=== PATIENT | female | born 1980 | race Caucasian/White ===

== ENCOUNTER → 2016-11-16 | Outpatient (CLI) | payer BC ==
[~2016-11-16] MED LIST: CITA10TA8 PO; HUMATROPE INJ; LEVO150T PO; LEVO1TAB35 PO; MULTTAB58 PO; SOMA6INJ INJ; [UNRECOGNIZED DRUG - CODE] PO
[2016-11-16 18:34] LABS: LYME DISEASE AB IGG NEG (NEG); LYME DISEASE AB IGM EQUIVOCAL (NEG)
[2016-11-22 05:43] LABS: 18KDIGG BAND NONREACTIVE (NONREACTIVE); 23KDIGG BAND NONREACTIVE (NONREACTIVE); 23KDIGM BAND REACTIVE (NONREACTIVE); 28KDIGG BAND NONREACTIVE (NONREACTIVE); 30KDIGG BAND NONREACTIVE (NONREACTIVE); 39KDIGG BAND NONREACTIVE (NONREACTIVE); 39KDIGM BAND NONREACTIVE (NONREACTIVE); 41KDIGG BAND NONREACTIVE (NONREACTIVE); 41KDIGM BAND NONREACTIVE (NONREACTIVE); 45KDIGG BAND NONREACTIVE (NONREACTIVE); 58KDIGG BAND REACTIVE (NONREACTIVE); 66KDIGG BAND NONREACTIVE (NONREACTIVE); 93KDIGG BAND NONREACTIVE (NONREACTIVE)
== END | disposition home or self-care (01) ==
LOC: C.LAB1850 16:07
PROVIDERS: ATTEND Physician Assistant
DX: T14.8 Other injury of unspecified body region (principal); W57.XXXA Bitten or stung by nonvenomous insect and other nonvenomous arthropods, initial encounter

== ENCOUNTER → 2017-01-02 | Outpatient (CLI) | payer BC ==
--- NOTE | 2017-01-02 16:01 | DIAGNOSTIC IMAGING REPORT ---
ABDOMINAL WALL ULTRASOUND CLINICAL HISTORY: R10.9 Abdominal pain COMPARISON STUDY: CT scan dated 05/18/2011 FINDINGS: Ultrasound of the right abdominal wall was performed with attention to the area of pain. There is a 4 mm shadowing focus within the soft tissues superficial to the rectus musculature. There is an area of heterogeneous echotexture within the fat measuring 14 x 4 mm. No abdominal wall hernia is visualized. IMPRESSION: 1. No ultrasonographic evidence of abdominal wall hernia 2. 14 x 4 mm area of heterogeneous echotexture within the subcutaneous fat superficial to the right rectus musculature. This contains a 4 mm shadowing focus, likely representing calcification. The lesion is nonspecific but could represent fat necrosis. Clinical follow-up is recommended. If the palpable abnormality increases in size, fine-needle aspiration biopsy could be obtained for tissue diagnosis Electronically signed by: Felix Clark M.D. 01/02/2017 4:00 PM Dictated Date/Time: 01/02/2017 3:56 PM
== END | disposition home or self-care (01) ==
LOC: C.ULTR 15:23
PROVIDERS: ATTEND Physician Assistant Medical
DX: R10.9 Unspecified abdominal pain (principal); R93.5 Abnormal findings on diagnostic imaging of other abdominal regions, including retroperitoneum

== ENCOUNTER 2017-04-01 06:43 | Emergency (ER) | payer BC ==
[~2017-04-01] VITALS: Ht 165.1 cm; Wt 70.3 kg
[~2017-04-01 06:43] MED LIST changes: -LEVO1TAB35 PO; -SOMA6INJ INJ
[2017-04-01 06:48] VITALS: TEMP 36.6; Ht 165.1 cm; Wt 70.3 kg
[2017-04-01 06:53] VITALS: O2SAT 98
[2017-04-01] MEDS ORDERED: ONDANSETRON INJ 2 MG/ML 2 ML VIAL IV STA (06:54)
[2017-04-01] MEDS ORDERED: MoRPHine SULFATE 4 MG/ML 1 ML CARP\\VIAL IV STA (06:54)
[2017-04-01] MEDS ORDERED: KETOROLAC TROMETHAMINE 30 MG/ML VIAL IV STA (06:54)
[2017-04-01] MEDS ORDERED: SODIUM CHLORIDE 0.9% 1000ML 1,000 ML IV STA (06:59)
[2017-04-01] MEDS ORDERED: SOMA6INJ INJ (07:06)
--- NOTE | 2017-04-01 07:06 | DIAGNOSTIC IMAGING REPORT ---
CHEST ONE VIEW PORTABLE HISTORY: 36 years-old Female Chest Pain COMPARISON: None available TECHNIQUE: Portable upright AP view of the chest FINDINGS: Cardiomediastinal and hilar silhouettes are within normal limits. No pneumothorax, pleural effusion or focal airspace consolidation. Bones are grossly intact. IMPRESSION: No acute cardiopulmonary process. The above report was generated using voice recognition software. It may contain grammatical, syntax or spelling errors. Electronically signed by: Juan Stephenson M.D. 04/01/2017 7:05 AM Dictated Date/Time: 04/01/2017 7:04 AM
[2017-04-01 07:10] LABS: BASO % 0.1 %; BASO ABS # 0.02 K/uL (0-0.2); COMPLETE YES; EOS % 0.1 %; HEMATOCRIT 40.3 % (37-47); IG% 0.6 %; LYMPH % 2.4 %; LYMPH ABS # 0.49 K/uL (1.2-3.4); MEAN CELL VOLUME 95.5 fL (80-100); MEAN CORPUSCULAR HEMOGLOBIN 31.3 pg (25-34); MEAN CORPUSCULAR HGB CONC 32.8 g/dl (32-36); MEAN PLATELET VOLUME 9.9 fL (7.4-10.4); MONO % 1.6 %; NEUT % 95.2 %; PLATELET COUNT 355 K/uL (130-400); RED BLOOD COUNT 4.22 M/uL (4.2-5.4); WHITE BLOOD COUNT 20.82 K/uL (4.8-10.8)
[2017-04-01 07:28] LABS: ALT/SGPT 21 U/L (12-78); BLOOD UREA NITROGEN 14 mg/dl (7-18); BUN/CREATININE RATIO 15.8 (10-20); CALCIUM 8.6 mg/dl (8.5-10.1); CARBON DIOXIDE 27 mmol/L (21-32); CHLORIDE 104 mmol/L (98-107); CREATININE 0.88 mg/dl (0.60-1.20); GLUCOSE 86 mg/dl (70-99); POTASSIUM 3.8 mmol/L (3.5-5.1); SODIUM 139 mmol/L (136-145)
[2017-04-01 07:33] LABS: ALKALINE PHOSPHATASE 63 U/L (45-117); AST/SGOT 21 U/L (15-37)
--- NOTE | 2017-04-01 07:33 | EMERGENCY ROOM VISIT NOTE ---
History Report prepared by Jahaira: Yosi Sol Under the Supervision of: Dr. Neto Sands D.O. First contact with patient: 06:48 Chief Complaint: SHORTNESS OF BREATH Stated Complaint: SOB, CHEST PAIN, DIARRHEA, VOM History of Present Illness The patient is a 36 year old female who presents to the Emergency Room with complaints of persistent chest pain and shortness of breath that began at 0100 this morning, 5.5 hours prior to arrival. The patient states that she awoke with her symptoms this morning. The pain is in the central/left chest, and the patient describes the sensation as a "midget sitting on her chest." She rates the pain as a 6 out of 10 in severity. Her chest pain is worsened with deep inspiration and twisting/turning/bending. The patient also complains that she has experienced four separate vomiting episodes this morning, with the most recent occurring at 0500. No radiation of the pain to her arms or jaw. The vomiting was secondary to nausea and not pain. She has also had multiple bouts of diarrhea. She denies any recent trauma, previous heart disease, diabetes, hypertension, hyperlipidemia, or history of smoking. The patient did travel to [place] recently for a trip to the beach. She is also on hormonal control. Denies coughing up blood, swelling of legs, blood clots, and history of cancer. The patient denies headache, change in vision, fevers, nausea, pain with urination, and melena. 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 A total of 10 systems reviewed and were otherwise negative. Past Medical & Surgical Surgical Problems: (1) H/O section (2) Hx of cholecystectomy Family History Cancer FHx: lung disease Social History Smoking Status: Never Smoker Marital Status: Housing Status: lives with family Occupation Status: employed Current/Historical Medications Scheduled Citalopram Hydrobromide (Celexa), 10 MG PO QAM Estradiol & Norethindrone Acet (Activella), 1 TAB PO QAM Levofloxacin (Levaquin), 750 MG PO QD@08 Levothyroxine Sodium (Synthroid), 150 MCG PO QAM Multiple Vitamin (Multivitamin), 1 TAB PO QAM Somatropin (Humatrope), 0.3 MG INJ QAM Allergies Coded Allergies: Cat Dander (Verified Allergy, Mild, sneezing, watery eyes, 04/01/17) Physical Exam Vital Signs Date Time Temp Pulse Resp B/P (MAP) Pulse Ox O2 Delivery O2 Flow Rate FiO2 04/01/17 09:50 87 24 103/58 93 04/01/17 07:55 89 24 114/66 93 Room Air 04/01/17 06:55 108 04/01/17 06:53 98 Room Air 04/01/17 06:49 93 Room Air 04/01/17 06:48 36.6 100 24 120/65 93 Room Air Physical Exam GENERAL: alert, sitting up in bed, uncomfortable, minimal distress, non-toxic EYE EXAM: normal conjunctiva OROPHARYNX: no exudate, no erythema, lips, buccal mucosa, and tongue normal and mucous membranes are moist NECK: supple, no nuchal rigidity, no adenopathy, non-tender. No JVD CHEST: Reproducible anterior chest wall pain just left of the sternum around ribs 3 through 5. Same pain she is experiencing when palpated/twisting/turning and bending LUNGS: Clear to auscultation. Normal chest wall mechanics HEART: Tachycardic rate. no murmurs, S1 normal and S2 normal ABDOMEN: abdomen soft, non-tender, normo-active bowel sounds, no masses, no rebound or guarding. BACK: Back is symmetrical on inspection and there is no deformity, no midline tenderness, no CVA tenderness. SKIN: no rashes and no bruising UPPER EXTREMITIES: upper extremities are grossly normal. Radial pulses equal bilateral LOWER EXTREMITIES: No pitting edema. Calves equal bilateral. NEURO EXAM: Normal sensorium, cranial nerves II-XII grossly intact, normal speech, no gross weakness of arms, no gross weakness of legs. Medical Decision & Procedures ER Provider Diagnostic Interpretation: Radiology results as stated below per my review and the radiologist's interpretation: CHEST ONE VIEW PORTABLE HISTORY: 36 years-old Female Chest Pain COMPARISON: None available TECHNIQUE: Portable upright AP view of the chest FINDINGS: Cardiomediastinal and hilar silhouettes are within normal limits. No pneumothorax, pleural effusion or focal airspace consolidation. Bones are grossly intact. IMPRESSION: No acute cardiopulmonary process. The above report was generated using voice recognition software. It may contain grammatical, syntax or spelling errors. Electronically signed by: Jaun Stephenson M.D. 04/01/2017 7:05 AM Dictated Date/Time: 04/01/2017 7:[address] ANGIOGRAPHY OF THE CHEST, PULMONARY EMBOLUS PROTOCOL CLINICAL HISTORY: Left-sided chest pain, shortness of breath and elevated d-dimer. COMPARISON STUDY: Chest radiograph April 01, 2017. TECHNIQUE: Following IV administration of 91 mL of Optiray-320, helical axial images of the chest were obtained utilizing the pulmonary embolus protocol. Maximal intensity projections and sagittal and coronal reformats were viewed on an independent 3D workstation. IV contrast was administered without complication. A dose lowering technique was utilized adhering to the principles of ALARA. CT DOSE: 229.51 mGy.cm FINDINGS: No pulmonary emboli are identified although the segmental and subsegmental pulmonary arteries are suboptimally assessed due to respiratory motion. There is no evidence of thoracic aortic dissection. The size of the heart is normal. There is no pericardial effusion. No enlarged axillary, mediastinal or hilar lymph nodes are present. Central airways are patent. There are few scattered mild subpleural opacities within the lingula. No pneumothorax or pleural effusion is present. There is no pneumomediastinum. Bony thorax is unremarkable. There are bilateral silicone breast implants. Upper abdomen is unremarkable. IMPRESSION: 1. No pulmonary emboli identified although the segmental and subsegmental pulmonary arteries are suboptimally assessed due to respiratory motion. 2. Minimal lingular subpleural opacity which favors atelectasis although a mild infectious process could appear similar. Electronically signed by: Douglas Fitch M.D. 04/01/2017 8:25 AM Dictated Date/Time: 04/01/2017 8:14 AM Laboratory Results 04/01/17 06:55 Red Blood Count 4.22, Mean Corpuscular Volume 95.5, Mean Corpuscular Hemoglobin 31.3, Mean Corpuscular Hemoglobin Concent 32.8, Mean Platelet Volume 9.9, Neutrophils (%) (Auto) 95.2, Lymphocytes (%) (Auto) 2.4, Monocytes (%) (Auto) 1.6, Eosinophils (%) (Auto) 0.1, Basophils (%) (Auto) 0.1, Neutrophils # (Auto) 19.83, Lymphocytes # (Auto) 0.49, Monocytes # (Auto) 0.33, Eosinophils # (Auto) 0.02, Basophils # (Auto) 0.02 04/01/17 06:55 Test 04/01/17 06:54 04/01/17 06:55 04/01/17 08:55 Creatine Kinase MB Ratio (0-3.0) White Blood Count 20.82 K/uL (4.8-10.8) Red Blood Count 4.22 M/uL (4.2-5.4) Hemoglobin 13.2 g/dL (12.0-16.0) Hematocrit 40.3 % (37-47) Mean Corpuscular Volume 95.5 fL (80-100) Mean Corpuscular Hemoglobin 31.3 pg (25-34) Mean Corpuscular Hemoglobin Concent 32.8 g/dl (32-36) Platelet Count 355 K/uL (130-400) Mean Platelet Volume 9.9 fL (7.4-10.4) Neutrophils (%) (Auto) 95.2 % Lymphocytes (%) (Auto) 2.4 % Monocytes (%) (Auto) 1.6 % Eosinophils (%) (Auto) 0.1 % Basophils (%) (Auto) 0.1 % Neutrophils # (Auto) 19.83 K/uL (1.4-6.5) Lymphocytes # (Auto) 0.49 K/uL (1.2-3.4) Monocytes # (Auto) 0.33 K/uL (0.11-0.59) Eosinophils # (Auto) 0.02 K/uL (0-0.5) Basophils # (Auto) 0.02 K/uL (0-0.2) RDW Standard Deviation 49.5 fL (36.4-46.3) RDW Coefficient of Variation 14.1 % (11.5-14.5) Immature Granulocyte % (Auto) 0.6 % Immature Granulocyte # (Auto) 0.13 K/uL (0.00-0.02) D-Dimer 760 ug/L FEU (0-500) Anion Gap 8.0 mmol/L (3-11) Est Creatinine Clear Calc Drug Dose 85.3 ml/min Estimated GFR () 96.6 Estimated GFR (Non- 83.3 BUN/Creatinine Ratio 15.8 (10-20) Calcium Level 8.6 mg/dl (8.5-10.1) Total Bilirubin 0.3 mg/dl (0.2-1) Direct Bilirubin < 0.1 mg/dl (0-0.2) Aspartate Amino Transf (AST/SGOT) 21 U/L (15-37) Alanine Aminotransferase (ALT/SGPT) 21 U/L (12-78) Alkaline Phosphatase 63 U/L (45-117) Creatine Kinase MB 1.5 ng/ml (0.5-3.6) Pro-B-Type Natriuretic Peptide 293 pg/ml (0-450) Total Protein 7.3 gm/dl (6.4-8.2) Albumin 3.3 gm/dl (3.4-5.0) Lipase 172 U/L (73-393) Troponin I < 0.015 ng/ml (0-0.045) Laboratory results per my review. Medications Administered Medications (Trade) Dose Ordered Sig/Evangelina Route Start Time Stop Time Status Last Admin Dose Admin Ketorolac Tromethamine (Toradol Inj) 30 mg NOW STAT IV 04/01/17 06:54 04/01/17 06:55 DC 04/01/17 07:04 30 MG Morphine Sulfate (MoRPHine SULFATE INJ) 4 mg NOW STAT IV 04/01/17 06:54 04/01/17 06:55 DC 04/01/17 07:03 4 MG Ondansetron HCl (Zofran Inj) 4 mg NOW STAT IV 04/01/17 06:54 04/01/17 06:56 DC 04/01/17 07:03 4 MG Sodium Chloride 1,000 ml @ 999 mls/hr Q1H1M STAT IV 04/01/17 06:59 04/01/17 07:59 DC 04/01/17 07:04 999 MLS/HR ECG Indication: chest pain, SOB/dyspnea Rate (beats per minute): 103 Rhythm: sinus tachycardia Findings: other (RAD, intraventricular conduction delay, normal intervals) ED Course ED COURSE: Vital signs were reviewed and showed tachycardic vitals The patients medical record was reviewed The above diagnostic studies were performed and reviewed. ED treatments and interventions as stated above. 0649: The patient was evaluated in room A10. A complete history and physical examination was performed. 0654: Ordered Zofran 4mg IV, Morphine Sulfate 4 mg IV, Toradol 30 mg IV. 0659: Ordered Sodium Chloride 1000 mL @ 999 mL/hr IV. 0717: I checked on the patient at this time. She is feeling better. The patient notes that she has experienced four separate vomiting episodes this morning, with the most recent occurring at 0500. The vomiting was secondary to nausea and not pain. She has also had multiple bouts of diarrhea. 0739: The patient is feeling improved at this time. She is getting her CT-PE now. 0833: The patient feels 100% improved at this time. Her pain is gone. There is still minimal tenderness to palpation. 0945: Ordered Levofloxacin 750 mg PO. 0948: Upon reevaluation, the patient is resting in bed and feels 100% improved.I discussed my findings with the patient and she understands and agrees with the treatment plan. Based on the patients age, coexisting illnesses, exam and lab findings the decision to treat as an outpatient was made. The patient remained stable while under my care. The patient appeared well at the time of discharge. Medical Decision Differential diagnoses includes but is not limited to acute coronary syndrome, myocardial infarction, pericarditis, pulmonary embolus, aortic dissection, pneumonia, pneumothorax, musculoskeletal, shingles, esophageal. Patient is a 36-year-old female with no significant cardiac history who presents the ER with left-sided chest pain which is pinpoint and reproducible on exam which has been present since 1 AM this morning. She did have associated nausea and vomiting. She also has diarrhea. She's never had this pain before. No radiation. Pain is clearly reproducible on exam along with twisting turning bending. Chest x-ray was unremarkable. EKG nondiagnostic. Labs were remarkable for a leukocytosis of 20,000. With her recent vomiting 4 I do favor this is the likely cause of her leukocytosis as she has no infectious symptoms. CT of the chest was performed with the elevated d-dimer. This showed a small amount of atelectasis in the left lingula. She has no upper respiratory symptoms but was covered prophylactically with Levaquin as she did have marked leukocytosis. Troponins were negative 2 with the last one 8 hours from the onset of chest pain. Symptoms completely resolved with Toradol and morphine. I do favor this is clearly musculoskeletal chest pain. Patient was discharged follow-up PCP. Discussed with Pt concerning signs and symptoms to watch out for. Pt was instructed to follow up with their PCP and discussed with the patient their option to return to the ED at anytime for persistent or worsening symptoms. The appropriate anticipatory guidance and out- patient management, including indications for return to the emergency department , were explained at length to the patient and understood. Medication Reconcilliation Current Medication List: was personally reviewed by me Blood Pressure Screening Patient's blood pressure: Normal blood pressure Impression Primary Impression: Chest pain Additional Impressions: Atelectasis Leukocytosis Scribe Attestation The scribe's documentation has been prepared under my direction and personally reviewed by me in its entirety. I confirm that the note above accurately reflects all work, treatment, procedures, and medical decision making performed by me. Departure Information Dispostion Home / Self-Care Prescriptions Levofloxacin (Levaquin) 750 Mg Tab 750 MG PO QD@08, #9 TAB Prov: Neto Sands, DO 04/01/17 Referrals Kentrell Shah M.D. (PCP) Forms HOME CARE DOCUMENTATION FORM, IMPORTANT VISIT INFORMATION Patient Instructions My [facility] Additional Instructions Please follow up with your primary care doctor with in the next 24 hours. Any worsening of your symptoms, please return to the ED immediately. This includes any fevers greater than 100.4, worsening pain, chest pain, shortness breath, persistent nausea, vomiting, unable to eat or drink, or any other concerning signs or symptoms from your standpoint. You were given medications during this visit that will inhibit your ability to drive, operate machinery and work. Please do NOT drive, operate machinery, drink alcohol or work for the next 12hrs. You were found to have a blood pressure greater than 120 systolic over 90 diastolic. Due to the new Medicare guidelines, we are now recommending that you follow up with your primary care doctor in regards to this elevated blood pressure. Please take the antibiotics as prescribed. Problem Qualifiers Primary Impression: Chest pain Chest pain type: unspecified Qualified Codes: R07.9 - Chest pain, unspecified Additional Impressions: Leukocytosis Leukocytosis type: unspecified Qualified Codes: D72.829 - Elevated white blood cell count, unspecified
[2017-04-01] MEDS ORDERED: OPTIRAY 320 IV PRN (07:45)
--- NOTE | 2017-04-01 08:27 | DIAGNOSTIC IMAGING REPORT ---
CT ANGIOGRAPHY OF THE CHEST, PULMONARY EMBOLUS PROTOCOL CLINICAL HISTORY: Left-sided chest pain, shortness of breath and elevated d-dimer. COMPARISON STUDY: Chest radiograph April 01, 2017. TECHNIQUE: Following IV administration of 91 mL of Optiray-320, helical axial images of the chest were obtained utilizing the pulmonary embolus protocol. Maximal intensity projections and sagittal and coronal reformats were viewed on an independent 3D workstation. IV contrast was administered without complication. A dose lowering technique was utilized adhering to the principles of ALARA. CT DOSE: 229.51 mGy.cm FINDINGS: No pulmonary emboli are identified although the segmental and subsegmental pulmonary arteries are suboptimally assessed due to respiratory motion. There is no evidence of thoracic aortic dissection. The size of the heart is normal. There is no pericardial effusion. No enlarged axillary, mediastinal or hilar lymph nodes are present. Central airways are patent. There are few scattered mild subpleural opacities within the lingula. No pneumothorax or pleural effusion is present. There is no pneumomediastinum. Bony thorax is unremarkable. There are bilateral silicone breast implants. Upper abdomen is unremarkable. IMPRESSION: 1. No pulmonary emboli identified although the segmental and subsegmental pulmonary arteries are suboptimally assessed due to respiratory motion. 2. Minimal lingular subpleural opacity which favors atelectasis although a mild infectious process could appear similar. Electronically signed by: Douglas Fitch M.D. 04/01/2017 8:25 AM Dictated Date/Time: 04/01/2017 8:14 AM
[2017-04-01] MEDS ORDERED: LEVOFLOXACIN 250 MG TAB PO ONE (09:45)
[2017-04-01 09:50] VITALS: BP 103/58; PULSE 87; O2SAT 93
[2017-04-01] MEDS ORDERED: LEVO1TAB35 PO (09:52)
== END 2017-04-01 10:04 | disposition home or self-care (01) ==
LOC: C.EDB 06:44 → C.EDA 10:04
DX: R07.9 Chest pain, unspecified (principal); R11.2 Nausea with vomiting, unspecified; R19.7 Diarrhea, unspecified; J98.11 Atelectasis; D72.829 Elevated white blood cell count, unspecified; Z79.3 Long term (current) use of hormonal contraceptives; Z90.49 Acquired absence of other specified parts of digestive tract; Z80.9 Family history of malignant neoplasm, unspecified; Z79.899 Other long term (current) drug therapy

== ENCOUNTER → 2017-05-20 | Outpatient (CLI) | payer BC ==
[~2017-05-20] MED LIST changes: -HUMATROPE INJ; +LEVO1TAB35 PO; +SOMA6INJ INJ
== END | disposition home or self-care (01) ==
LOC: C.PAPS 10:47
PROVIDERS: ATTEND Obstetrics & Gynecology
DX: Z01.419 Encounter for gynecological examination (general) (routine) without abnormal findings (principal)

== ENCOUNTER → 2017-09-11 | Outpatient (CLI) | payer BC ==
[~2017-09-11] MED LIST changes: +GADAVIST IV PRN
--- NOTE | 2017-09-11 17:30 | DIAGNOSTIC IMAGING REPORT ---
BRAIN COMBO FOR PITUITARY CLINICAL HISTORY: HYPOPITUITARYISM mental status change TECHNIQUE: MRI multi axial acquisition. Specific images of the pituitary in the coronal as well as sagittal planes COMPARISON STUDY: None FINDINGS: Diffusion images are negative for an acute ischemic insult. Signal characteristics of the cerebellar as well as cerebral hemispheres are unremarkable. Structures the sella and parasellar region are unremarkable. Ventricular system is midline. Postcontrast images of the sella show no evidence for a negatively enhancing nodule. There is no evidence for mass. Pituitary stock is unremarkable and midline. The optic chiasm shows no evidence for displacement. Ventricular system is midline. There is no evidence hydrocephalus. IMPRESSION: Normal exam The above report was generated using voice recognition software. It may contain grammatical, syntax or spelling errors. Electronically signed by: Everardo Kim M.D. 09/11/2017 5:28 PM Dictated Date/Time: 09/11/2017 5:23 PM
== END | disposition home or self-care (01) ==
LOC: C.MRI 16:09
PROVIDERS: ATTEND Internal Medicine Endocrinology, Diabetes & Metabolism
DX: E03.8 Other specified hypothyroidism (principal); E23.0 Hypopituitarism